=== PATIENT | male | born 1950 | race Caucasian/White ===

== ENCOUNTER → 2018-04-13 16:44 | Outpatient (CLI) | payer OTHER, SELFPAY ==
[2018-04-13 18:36] LABS: Bacteria Urine None Seen
[2018-04-13 19:24] LABS: Appearance Urine UA CLEAR; Bilirubin Urine UA NEGATIVE (NEGATIVE); Color Urine UA YELLOW; Glucose Urine UA NEGATIVE (Normal); Ketones Urine UA NEGATIVE (NEGATIVE); Leukocyte Esterase Urine UA NEGATIVE (NEGATIVE); Nitrite Urine UA Negative (Negative); Occult Blood Urine UA NEGATIVE (Negative); Protein Urine UA NEGATIVE (Negative); Urobilinogen Urine UA 0.2 E.U./dL (0.2)
[2018-04-13 20:02] LABS: RBC Urine 0-1/HPF (0-5/HPF); WBC Urine 0-1/HPF (0-5/HPF)
== END ==
PROVIDERS: PCP Family Medicine; Visit Provider Family Medicine
DX: R82.90 Unspecified abnormal findings in urine (principal)
CPT/HCPCS: 81001

== ENCOUNTER 2018-08-07 10:22 | Day surgery (SDC) | payer OTHER, MEDICARE, SELFPAY ==
[2018-08-01 12:46] VITALS: BMI 28.3
--- NOTE | 2018-08-07 | PATH_ITS ---
[facility] Accession Number: [id number] . 01 Material submitted: . PILONYDAL CYST . 01 Clinical history: . PILONYDAL CYST . 02 Diagnosis: Specimen Designated Pilonidal Cyst: Pilonidal cyst, severely inflamed with associated apparent sinus tract. Negative for atypia and malignancy. MRV/08/09/2018 . 02 Electronically signed: . Julio Garcias MD, Pathologist NPI- [id number] . 01 Gross description: . Received in formalin, labeled pilonidal cyst, short S. superior, long S. left lateral, is an ellipse of mclean-white smooth shiny skin with underlying tissue (7.7 cm 12 o'clock to 6 o'clock, 2.5 cm 3 o'clock to 9 o'clock, 2.7 cm superficial to deep) oriented with two white sutures (short-superior, long-left lateral). The sutures are redesignated as short-12 o'clock and long-9 o'clock by the pathologist's accounting administrative assistant for grossing purposes. The ellipse contains a linear pucker from tip to tip and is perforated (0.6 x 0.1 cm) 4.7 cm from the 12 o'clock, 1.5 cm from the 3 o'clock, 2.5 cm from the 6 o'clock, and 1.1 cm from the 9 o'clock resection margins. An irregularly firm bulging area (1.3 x 1.0 x 0.2 cm) is identified 0.8 cm from the perforation, 3.2 cm from the 12 o'clock, 1.2 cm from the 3 o'clock, 3.8 cm from the 6 o'clock and 0.5 cm from the 9 o'clock resection margins. The underlying tissue is fatty and densely fibrous which coincides with the overlying puckered, bulging, and perforated skin. Ink code: yellow-12 o'clock to 3 o'clock; blue-3 o'clock to 6 o'clock; black-6 o'clock to 9 o'clock to 12 o'clock. Section code: (A1-A5) direct sales representative serial sections submitted 12 o'clock to 6 o'clock, one slice in each cassette. ([id number]) /MRV . 02 Pathologist provided ICD-10: L05.01 . 02 CPT . 576580 Performed at: 01 [facility] [address] [id number] MD Elkin Reddy MD Phone: [phone] Performed at: 02 [facility] [address] [place], [place] [id number] MD Abisai Conti MD Phone: [phone]
[2018-08-07 10:34] VITALS: BP 160/79; PULSE 77; RESP 18; TEMP 36.1; O2SAT 99; BMI 25.7
[2018-08-07] MEDS: ALBUTEROL 2.5 MG/3 ML NEB (ADULT) INH ×2 (10:55→13:16)
[2018-08-07] MEDS: LACTATED RINGERS 1,000 ML 100 ML IV (10:57)
--- NOTE | 2018-08-07 11:01 | PM.PREOP ---
Pre-operative Note Interval Note Pre-op Check: Yes History & Physical Reviewed by Physician and Yes Exam Performed Changes: No H&P completed within 30 days and has changed as indicated here:: Patient seen and examined once again in the preoperative area. History physical examination as documented on the chart July 26, 2018 has not changed. Proceed with excision of pilonidal cyst today as planned.
[2018-08-07] MEDS: CEFAZOLIN 2 GM/100 ML FROZ.PIGGY IV (11:20)
--- NOTE | 2018-08-07 11:45 | SUR.OPER ---
Prone on padded OR bed, head in foam head support, gel chest rolls, gel pad under knees, pillow under lower legs, toes free of pressure, arms secured on padded arm boards at <90 degrees abduction. Safety belt at thigh.
[2018-08-07] MEDS: LIDOCAINE 1% W/EPI INJ 20 ML INJ (11:57)
[2018-08-07] MEDS: BUPIVACAINE 0.5% (PF) VIAL 30 ML INJ (11:58)
[2018-08-07 12:30] VITALS: BP 148/59; PULSE 84; RESP 17; TEMP 36.1
[2018-08-07 12:35] VITALS: BP 128/69; PULSE 98; RESP 16; O2SAT 95
[2018-08-07 12:40] VITALS: BP 101/58; PULSE 99; RESP 17; O2SAT 96
--- NOTE | 2018-08-07 12:42 | P.OP_ITS ---
Operative Date/Time/Diagnoses Date of procedure: 08/07/18 Time of procedure: 12:35 Pre-op diagnosis: Chronic inflamed pilonidal cyst Post-op diagnosis: same Procedure & Clinicians Procedure: Excision of inflamed simple pilonidal cyst measuring 9 x 3 cm total defect Same procedure as scheduled: Yes Indications: 68-year-old male who presented with chronic intermittent drainage from the sacrococcygeal region. Examination and evaluation were consistent with chronically inflamed pilonidal cyst. Excision was recommended. Surgeon: Shaji Jeff Click Yes if Unassisted: Yes Anesthesia Type: General Operative Notes Findings: 1. Multiple sinus tracts in the sacrococcygeal area consistent with pilonidal cyst 2. Chronic granulation tissue within multiple sinus tracts consistent with chronic inflammation 3. No evidence of abscess or other acute infectious process Closure Type: primary Specimen(s): other (pilonidal cyst) Implants & Drains: none Estimated Blood Loss (mL): 5 Blood products transfused: none Procedure in detail: After obtaining informed consent the patient was brought to the operating room and left supine on the gurney. After satisfactory induction of general anesthesia he was moved to prone navin-knife position on the OR table. All pressure points were padded appropriately. SCOAP time out was performed per standard protocol. Buttocks were taped apart and the entire gluteal region and perianal region were prepped and draped in usual sterile fashion. Elliptical incision was designed with the above dimensions around the obvious pilonidal cyst and multiple sinus tracts extending down to the superior aspect of the anoderm. Area was infiltrated with a 1 :1 mixture 1% lidocaine with 1 :100,000 epinephrine and 0.5% plain Marcaine for postoperative analgesia. Skin incision was created with 15 scalpel blade followed by the Bovie for hemostasis. Dissection was carried down through the subcutaneous tissue to the sacral fascia with the Bovie. Entire lesion was then excised leaving a clean uninflamed fascial plane at the deep aspect of the wound. Wound was irrigated with copious amounts of sterile saline solution and hemostasis was verified. Tape was removed to release tension from the wound. Subcutaneous layer of interrupted 2 0 Vicryl sutures followed by a cutaneous layer of vertical mattress 2 0 nylon sutures were used to close the incision. Meticulous closure was employed so that all layers of the wound were well- approximated without defects or asymmetry. Sterile dressing was applied. Patient was returned to supine position on the gurney. Anesthesia was reversed the patient extubated in the operating room. He was taken recovery in stable condition. Complications: none Condition: stable Disposition: PACU Plan for aftercare: 1. Discharge to home 2. Follow up in surgery clinic next week
[2018-08-07 12:55] VITALS: BP 107/73; PULSE 85; RESP 17; TEMP 36.1; O2SAT 96
--- NOTE | 2018-08-07 13:19 | SUR.PHASEII ---
Pt has frequent, moist cough. Exp wheeze in howard posterior lobes, Albuterol neb provided
[2018-08-07 13:52] VITALS: BP 118/71; PULSE 78; RESP 20; TEMP 36.9; O2SAT 93
--- NOTE | 2018-08-07 13:54 | SUR.PHASEII ---
Dr Le notified pt wheezing and has cough, o2 sat 93%RA. Albuterol treatment given. OK for pt to D/C per Dr. Le. Pt denied dyspnea and reported respiratory status was same as pre-op.
== END 2018-08-07 13:50 | disposition home or self-care (01) ==
PROVIDERS: PCP Family Medicine; Visit Provider Surgery
PROC: (CPT 11771; principal; 2018-08-07 11:45)
DX: L05.91 Pilonidal cyst without abscess (principal); F17.210 Nicotine dependence, cigarettes, uncomplicated; J45.909 Unspecified asthma, uncomplicated
CPT/HCPCS: 11771; 88304; J0330; J0690; J1100; J2250; J2405; J2704; J3010; J7613

== ENCOUNTER → 2021-02-08 11:02 | Outpatient (CLI) | payer OTHER, SELFPAY ==
[2021-02-08 12:49] LABS: COVID19 -Nasal RAPID Negative (Negative)
== END ==
PROVIDERS: PCP Student in an Organized Health Care Education/Training Program; Referring Provider Internal Medicine Gastroenterology; Visit Provider Physician Assistant
DX: Z20.822 Contact with and (suspected) exposure to COVID-19 (principal)
CPT/HCPCS: 87635

== ENCOUNTER 2021-02-10 10:19 | Day surgery (SDC) | payer OTHER, SELFPAY ==
--- NOTE | 2021-02-10 | PATH_ITS ---
[facility] Accession Number: [id number] . 01 Material submitted: . colon - SIGMOID COLON POLYP X3 . 02 Diagnosis: Sigmoid Colon Polyps, Biopsies: Tubulovillous adenoma x1. Hyperplastic polyp x1. Negative for high-grade dysplasia or malignancy. [facility] 02/12/2021 1524 Local . 02 Comment: Only two biopsy fragments are received for histologic evaluation. . 02 Electronically signed: . Cristopher Tsai MD, PhD, Pathologist NPI- [id number] . 01 Gross description: . SIGMOID COLON POLYP X3: Received in formalin are 2 fragment(s) of mclean, soft tissue measuring 0.2 x 0.2 x 0.2 cm to 0.8 x 0.7 x 0.6 cm submitted entirely in 1 cassette(s) /YENNY 02/11/2021 2300 Local . 02 Pathologist provided ICD-10: D12.5 . 02 CPT . 919295 Performed at: 01 [facility] [address], [place], [place] [id number] MD Elkin Reddy MD Phone: [phone] Performed at: 02 [facility] [address] [place], [place] [id number] MD Gisella Modi MD Phone: [phone]
[2021-02-10 10:44] VITALS: BP 143/81; PULSE 105; RESP 16; TEMP 36.2; O2SAT 98; BMI 27.3
[2021-02-10] MEDS: SODIUM CHLORIDE 0.9% 1,000 ML 100 ML IV (10:56)
--- NOTE | 2021-02-10 12:00 | PM.HP.1 ---
History of Present Illness History of Present Illness Date Patient Seen: 02/10/21 Chief complaint: SDC Narrative: Positive fit test Patient History Medical History (Updated 08/28/18 @ 08:52 by Jason Ramsey MD) Asthma (2012) BPH (benign prostatic hyperplasia) (Unknown) Cataract Cataracts, bilateral (1998) Chronic back pain (1994) Chronic cough (1968) Chronic pain syndrome (Unknown) Elevated PSA (1992) Elevated PSA Foot pain (2004) Foot pain Glaucoma (1998) Hearing loss (1988) Osteoporosis (1999) Pilonidal cyst Restless leg syndrome (2004) Surgical History (Updated 08/01/18 @ 12:49 by Fany Engel RN) History of back surgery (1996) History of cataract removal with insertion of prosthetic lens History of vitrectomy Family & Social History Family History Mother Stroke Brother No problems noted. Father Cancer Social History: household members spouse Tobacco & Substance use: Tobacco type cigarettes,e-cigarettes Smoking Status Current some day smoker alcohol intake current alcohol intake frequency a few times a month Substance Use Type marijuana Meds Home Medications and Allergies Home Medications Medication Instructions Recorded Confirmed Type latanoprost 1 drp OU HS #1 bot 08/23/17 02/10/21 Rx dorzolamide-timolol 1 drp OPHTH BID #5 ml 12/22/17 02/10/21 Rx pramipexole 1.5 mg PO QDAY #90 tab 12/22/17 02/10/21 Rx finasteride 5 mg tablet 5 mg PO QDAY #30 tab 04/17/18 02/10/21 Rx alprazolam 1 mg tablet 1 mg PO .hs PRN #30 tab 07/19/18 02/10/21 Rx trazodone 50 mg PO BEDTIME 08/01/18 09/12/18 History brimonidine 0.2 % eye drops 1 drp EYE-BOTH BID #1 drp 08/10/18 02/10/21 Rx albuterol sulfate 90 mcg/actuation 1 puff INHALATION BID #1 inh 08/21/18 02/10/21 Rx aerosol inhaler budesonide-formoterol HFA 80 2 puff INHALATION BID #6.9 gram 09/06/18 02/10/21 Rx mcg-4.5 mcg/actuation aerosol inhaler Allergies Allergy/AdvReac Type Severity Reaction Status Date / Time No Known Drug Allergies Allergy Verified 02/10/21 10:34 Exam Vital Signs (past 8 hours): - 02/10/21 10:44 Temperature 97.1 F L Pulse Rate 105 H Respiratory Rate 16 Blood Pressure 143/81 H Pulse Oximetry 98 Oxygen Delivery Method Room Air Narrative Exam Narrative: Oropharynx free of lesions Chest clear to auscultation and percussion Cardiac exam reveals no S3 or murmur Assessment & Plan Assessment & Plan narrative: Positive fit test, rule out colonic polyps. Colonoscopy to be performed. Risks, benefits, alternatives have been explained.
--- NOTE | 2021-02-10 12:02 | PM.OP.ENDO ---
Operative Date/Time/Diagnoses Date of procedure: 02/10/21 Pre-op diagnosis: See indication and findings Procedure & Clinicians Study performed: Colonoscopy Same procedure as scheduled: Yes Indications: Positive fit test Surgeon: Lor Benoit Procedure Notes Procedure in detail: After informed consent was obtained the patient was placed in left lateral decubitus position. The video colonoscope was introduced the rectum slowly advanced cecum. Preparation was good. On slow withdrawal mucosa was carefully examined. Scope was removed. The patient tolerated procedure well. Blood loss none Complications none Sedation Total sedation time 21 minutes Fentanyl 100 mg Versed 4 mg IV titration Findings 1. Moderate sigmoid diverticulosis 2. Large 1.2 cm semi pedunculated polyp sigmoid colon snared and removed completely 3. 6 mm sessile polyp the sigmoid cold snared and but retrieved 4. 4 mm sigmoid polyp sessile Jumbo biopsy. This was placed same as 2. Will follow up biopsy results but expect he will need follow-up colonoscopy 3-5
[2021-02-10] MEDS: fentaNYL 250 MCG/5 ML INJ IV (12:41)
[2021-02-10] MEDS: MIDAZOLAM 5 MG/5 ML VIAL IV (12:50)
[2021-02-10 13:07] VITALS: BP 119/77; PULSE 69; RESP 14; TEMP 36.1; O2SAT 95
[2021-02-10 13:12] VITALS: BP 107/59; PULSE 72; RESP 16; O2SAT 95
[2021-02-10 13:18] VITALS: BP 140/80; PULSE 78; RESP 16; O2SAT 96
[2021-02-10 13:22] VITALS: BP 154/82; PULSE 89; RESP 16; O2SAT 97
[2021-02-10 13:30] VITALS: BP 155/74; PULSE 74; RESP 16; TEMP 36.6; O2SAT 99
== END 2021-02-10 13:46 | disposition home or self-care (01) ==
PROVIDERS: PCP Student in an Organized Health Care Education/Training Program; Referring Provider Internal Medicine Gastroenterology; Visit Provider Internal Medicine Gastroenterology
PROC: 0DJD8ZZ Inspection of Lower Intestinal Tract, Via Natural or Artificial Opening Endoscopic (ICD-10-PCS; CPT 45378; principal; 2021-02-10 13:30)
DX: D12.5 Benign neoplasm of sigmoid colon (principal); F17.210 Nicotine dependence, cigarettes, uncomplicated; J45.909 Unspecified asthma, uncomplicated; K57.30 Diverticulosis of large intestine without perforation or abscess without bleeding
CPT/HCPCS: 45385; 45380; J2250; J3010

== ENCOUNTER → 2023-03-30 13:40 | Outpatient (CLI) | payer OTHER, SELFPAY | PROVIDERS: Absent Provider Student in an Organized Health Care Education/Training Program; Family Provider Family Medicine; PCP Family Medicine; Referring Provider Family Medicine; Visit Provider Family Medicine | DX: M48.07 Spinal stenosis, lumbosacral region (principal) | CPT/HCPCS: 95886; 95911 ==